=== PATIENT | male | born 1990 | race Caucasian/White ===

== ENCOUNTER 2016-09-13 20:49 | Emergency (ER) | payer BC ==
[~2016-09-13] VITALS: Ht 177.8 cm; Wt 74.6 kg
[2016-09-13 20:57] VITALS: BP 135/82; PULSE 72; RESP 20; TEMP 97.8
--- NOTE | 2016-09-13 21:22 | PD ---
HPI Chief Complaint: Skin Problem Time Seen by Provider: 21:14 Travel History International Travel<30 days: No Contact w/Intl Traveler<30days: No Traveled to known affect area: No History of Present Illness HPI 25-year-old male presents to the emergency room for evaluation of left-sided facial swelling for the past several hours. Patient states he had a pimple to his left forehead 4 days ago and he tried to pop it. States symptoms seemed to worsen afterward. He got a small amount of clear drainage but no purulent discharge. States today after going to work, the swelling developed. 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 Patient reports minimal pain that was mostly concerned about the swelling. He took ibuprofen prior to coming to the emergency room without significant relief. Denies eye pain, change in visual acuity, or eye drainage. Denies fever, chills, nausea, and vomiting. No chronic medical conditions or daily medications. PFSH Past Medical History Blood Disorders: No Cancer: No Cirrhosis: Yes Diminished Hearing: No Psychiatric: Yes ([facility]. NOW IN RESIDENT [place] FOR DRUGS) Seizures: No Thyroid Disease: No Ulcer: No Past Surgical History Genitourinary Surgery: Yes (RENAL BX + NIL DISEASE) Other Surgery: Yes (RIGHT ELBOW FRACTURE) Social History Alcohol Use: No Tobacco Use: Yes (1 PPD) Substance Use: No Allergies-Medications (Allergen,Severity, Reaction): Coded Allergies: No Known Allergies (Verified , 11/15/13) Reported Meds & Prescriptions Reported Meds & Active Scripts Active Clindamycin (Clindamycin HCl) 300 Mg Cap 300 Mg PO Q8HR 10 Days Review of Systems Except as stated in HPI: all other systems reviewed are Neg Physical Exam Narrative GENERAL: Well-nourished, well-developed male in no acute distress. Afebrile. Ambulatory. SKIN: Warm and dry. There is a 0.5 cm maculopapular lesion to the left forehead with surrounding edema extending approximately 3-4 centers in each direction. The preseptal space of the upper eyelid is unaffected. No significant erythema. Extreme tenderness to palpation, especially over the eyebrow. HEAD: Normocephalic. EYES: PERRL, EOMI, no discharge or injection. No scleral icterus. No proptosis. NECK: Supple, trachea midline. No JVD or lymphadenopathy. CARDIOVASCULAR: Regular rate and rhythm without murmurs, gallops, or rubs. RESPIRATORY: Breath sounds equal bilaterally. No accessory muscle use. Data Data Last Documented VS Vital Signs Date Time Temp Pulse Resp B/P Pulse Ox O2 Delivery O2 Flow Rate FiO2 09/13/16 20:57 97.8 72 20 135/82 [facility] Medical Decision Making Medical Screen Exam Complete: Yes Emergency Medical Condition: Yes Medical Record Reviewed: Yes Differential Diagnosis Preseptal cellulitis versus orbital cellulitis versus acne Narrative Course 25-year-old male presents to the emergency room for evaluation of left forehead pimple developed worsening edema and pain today. Physical exam reveals a 0.5 cm maculopapular lesion the left forehead with 4 cm of surrounding edema in all directions. Edema extends into the upper lid of the left eye. Visual acuity is unaffected. Eyes without injection or drainage. There is no proptosis. No pain with eye movement. No history of fever. Vital signs stable. History and physical exam are consistent with preseptal cellulitis. I had my attending physician, Dr. Tucker, assess the patient and he agrees with the proposed plan. Patient will be discharged with prescription for clindamycin and told to follow up with a primary care physician or return to the emergency room for worsening symptoms. He understands and agrees to this plan. Diagnosis Primary Impression: Periorbital cellulitis of left eye Referrals: Primary Care Physician Patient Instructions: General Instructions, Periorbital Cellulitis in Adults ( ED) Departure Forms: Tests/Procedures, Work Release Enter return to work date: Sep 16, 2016 Additional Instructions: Rest and drink plenty of fluids. Take clindamycin as directed, until gone. Take ibuprofen with food as directed, as needed for pain. Follow-up with a primary care physician. Return to the emergency room for worsening symptoms. Med/Other Pt SpecificInfo: Prescription(s) given Scripts Clindamycin 300 Mg Bpr473 Mg PO Q8HR 10 Days Ref 0 Prov:Shailesh Lopez MD 09/13/16 Disposition: 01 DISCHARGE HOME Condition: Stable Nathalie Meyers Sep 13, 2016 21:22
[2016-09-13] MEDS ORDERED: CLIN1CAP6 PO (21:23)
== END 2016-09-13 22:05 | disposition home or self-care (01) ==
LOC: PHEFT 20:49
DX: L03.213 Periorbital cellulitis (principal); F17.210 Nicotine dependence, cigarettes, uncomplicated
CPT/HCPCS: 99283

== ENCOUNTER 2016-09-14 03:41 | Emergency (ER) | payer BC ==
[~2016-09-14] VITALS: Ht 177.8 cm; Wt 74.7 kg
[~2016-09-14 03:41] MED LIST: CLIN1CAP6 PO
[2016-09-14 03:53] VITALS: BP 121/82; PULSE 74; RESP 16; TEMP 97.7; O2SAT 98
[2016-09-14 04:21] VITALS: BP 121/82; PULSE 74; RESP 18; TEMP 97.7; O2SAT 98
--- NOTE | 2016-09-14 05:43 | PD ---
HPI Chief Complaint: Skin Problem Time Seen by Provider: 05:34 Travel History International Travel<30 days: No Contact w/Intl Traveler<30days: No Traveled to known affect area: No History of Present Illness HPI 25-year-old male presents to the emergency department for complaint of forehead swelling. Patient reports on he had a pimple-like lesion to his forehead he noted there for a couple of days and then tried to express the site and noted increased redness and swelling to the area. Patient was seen for the first time last evening for same complaint and was given prescription for clindamycin. Patient states he does not have finances to fill the prescription so when he awakened from sleep this morning he noticed that there was more swelling of the forehead and had been told to return to the emergency department if any worsening. She now receiving antibiotic in the emergency department has been on no antibiotic. Patient denies fever chills nausea vomiting. Patient is not diabetic. Patient denies any visual disturbance or pain with range of motion of the eye. Patient states he is here because of swelling. The patient rates the pain 8/10 in intensity. PFSH Past Medical History Narrative Medical Cirrhosis, renal biopsy, janey disease, HBS admissions, right elbow fracture, tobacco use; nursing notes reviewed Blood Disorders: No Cancer: No Cirrhosis: Yes Diminished Hearing: No Psychiatric: Yes ([facility]BS ADMISSIONS. NOW IN [place]IDENT [place] FOR DRUGS) Seizures: No Thyroid Disease: No Ulcer: No Tetanus Vaccination: > 5 Years Influenza Vaccination: Yes Past Surgical History Genitourinary Surgery: Yes (RENAL BX + NIL DISEASE) Other Surgery: Yes (RIGHT ELBOW FRACTURE) Social History Alcohol Use: No Tobacco Use: Yes (1 PPD) Substance Use: No Allergies-Medications (Allergen,Severity, Reaction): Coded Allergies: No Known Allergies (Verified , 09/14/16) Reported Meds & Prescriptions Reported Meds & Active Scripts Active Clindamycin (Clindamycin HCl) 300 Mg Cap 300 Mg PO Q8HR 10 Days Review of Systems Except as stated in HPI: all other systems reviewed are Neg General / Constitutional: No: Fever Eyes: No: Visual changes HENT: Positive: Headaches, No: Congestion, Neck Pain Cardiovascular: No: Chest Pain or Discomfort Respiratory: No: Shortness of Breath Gastrointestinal: No: Nausea, Vomiting Genitourinary: No: Flank Pain Musculoskeletal: No: Myalgias, Arthralgias Skin: Positive Rash, Positive Lumps Neurologic: No: Weakness, Dizziness, Syncope, Focal Abnormalities, Coordination Problem Psychiatric: Positive: Anxiety Hematologic/Lymphatic: No: Easy Bruising Physical Exam Narrative GENERAL: Well-developed well-nourished male in no acute distress no respiratory distress SKIN: Warm and dry. Soft tissue swelling to the left forehead with central 0.5 cm macular papular lesion with surrounding soft tissue induration and swelling extending to the eyebrow and affecting the upper lid. No drainage or injection of the left eye. Extraocular muscles are intact. No fluctuance. No purulent drainage. Scalp is spared. HEAD: Normocephalic. EYES: No scleral icterus. No injection or drainage. Bilateral pupils equal round reactive to light extraocular muscles intact. NECK: Supple, trachea midline. No JVD or lymphadenopathy. CARDIOVASCULAR: Regular rate and rhythm without murmurs, gallops, or rubs. RESPIRATORY: Breath sounds equal bilaterally. No accessory muscle use. GASTROINTESTINAL: Abdomen soft, non-tender, nondistended. MUSCULOSKELETAL: No cyanosis, or edema. BACK: Nontender without obvious deformity. No CVA tenderness. Data Data Last Documented VS Vital Signs Date Time Temp Pulse Resp B/P Pulse Ox O2 Delivery O2 Flow Rate FiO2 09/14/16 07:43 97.7 65 16 116/68 96 Nasal Cannula 4 Orders Basic Metabolic Panel (Bmp) (09/14/16 05:34) Complete Blood Count With Diff (09/14/16 05:34) Blood Culture (09/14/16 05:34) Iv Access Insert/Monitor (09/14/16 05:34) Ketorolac Inj (Toradol Inj) (09/14/16 05:45) Clindamycin Inj (Cleocin Inj) (09/14/16 05:45) Lactic Acid (09/14/16 05:34) Ct Facial Bones W Iv Contrast (09/14/16 ) Iohexol 350 Inj (Omnipaque 350 Inj) (09/14/16 08:06) Labs Laboratory Tests Test 09/14/16 06:15 White Blood Count 13.2 TH/MM3 Red Blood Count 5.54 MIL/MM3 Hemoglobin 15.1 GM/DL Hematocrit 46.6 % Mean Corpuscular Volume 84.0 FL Mean Corpuscular Hemoglobin 27.3 PG Mean Corpuscular Hemoglobin 32.5 % Concent Red Cell Distribution Width 12.3 % Platelet Count 267 TH/MM3 Mean Platelet Volume 8.4 FL Neutrophils (%) (Auto) 64.2 % Lymphocytes (%) (Auto) 23.8 % Monocytes (%) (Auto) 9.3 % Eosinophils (%) (Auto) 1.9 % Basophils (%) (Auto) 0.8 % Neutrophils # (Auto) 8.5 TH/MM3 Lymphocytes # (Auto) 3.1 TH/MM3 Monocytes # (Auto) 1.2 TH/MM3 Eosinophils # (Auto) 0.3 TH/MM3 Basophils # (Auto) 0.1 TH/MM3 CBC Comment DIFF FINAL Differential Comment Sodium Level 141 MEQ/L Potassium Level 3.7 MEQ/L Chloride Level 106 MEQ/L Carbon Dioxide Level 27.7 MEQ/L Anion Gap 7 MEQ/L Blood Urea Nitrogen 10 MG/DL Creatinine 0.91 MG/DL Estimat Glomerular Filtration 101 ML/MIN Rate Random Glucose 84 MG/DL Lactic Acid Level 0.7 mmol/L Calcium Level 8.8 MG/DL MDM Medical Decision Making Medical Screen Exam Complete: Yes Emergency Medical Condition: Yes Medical Record Reviewed: Yes Interpretation(s) Laboratory Tests Test 09/14/16 06:15 White Blood Count 13.2 TH/MM3 Red Blood Count 5.54 MIL/MM3 Hemoglobin 15.1 GM/DL Hematocrit 46.6 % Mean Corpuscular Volume 84.0 FL Mean Corpuscular Hemoglobin 27.3 PG Mean Corpuscular Hemoglobin 32.5 % Concent Red Cell Distribution Width 12.3 % Platelet Count 267 TH/MM3 Mean Platelet Volume 8.4 FL Neutrophils (%) (Auto) 64.2 % Lymphocytes (%) (Auto) 23.8 % Monocytes (%) (Auto) 9.3 % Eosinophils (%) (Auto) 1.9 % Basophils (%) (Auto) 0.8 % Neutrophils # (Auto) 8.5 TH/MM3 Lymphocytes # (Auto) 3.1 TH/MM3 Monocytes # (Auto) 1.2 TH/MM3 Eosinophils # (Auto) 0.3 TH/MM3 Basophils # (Auto) 0.1 TH/MM3 CBC Comment DIFF FINAL Differential Comment Sodium Level 141 MEQ/L Potassium Level 3.7 MEQ/L Chloride Level 106 MEQ/L Carbon Dioxide Level 27.7 MEQ/L Anion Gap 7 MEQ/L Blood Urea Nitrogen 10 MG/DL Creatinine 0.91 MG/DL Estimat Glomerular Filtration 101 ML/MIN Rate Random Glucose 84 MG/DL Lactic Acid Level 0.7 mmol/L Calcium Level 8.8 MG/DL Differential Diagnosis Facial cellulitis, orbital cellulitis, periorbital cellulitis, abscess Narrative Course IV access obtained specimens collected and sent for resulting patient administered clindamycin 900 mg IV piggyback and Toradol 30 mg IV 25-year-old male with simple that he attempted to express after 5 days of symptoms presented earlier to the emergency department has not taken any antibiotic and returns because symptoms have not improved. Patient will be given first dose of antibiotic labs collected and sent for resulting. CT facial bones for abscess to soft tissue forehead/periorbital area pending; disposition and care signed over to Dr Lei. Diagnosis Primary Impression: Periorbital cellulitis of left eye Pari Pierre MD Sep 14, 2016 05:43
[2016-09-14] MEDS ORDERED: CLINDAMYCIN INJ 900 MG in SODIUM CHLORIDE 0.9% INJ 100 ML IV ONE (05:45)
[2016-09-14] MEDS ORDERED: KETOROLAC TROMETHAMINE 30 MG/ML (IVP) VIAL IVP ONE (05:45)
[2016-09-14 06:36] LABS: AUTOMATED NEUTROPHIL # 8.5 TH/MM3 (1.8-7.7); BASOPHIL # 0.1 TH/MM3 (0-0.2); BASOPHIL % 0.8 % (0.0-2.0); EOSINOPHIL # 0.3 TH/MM3 (0-0.4); EOSINOPHIL % 1.9 % (0.0-4.0); HEMATOCRIT 46.6 % (39.0-51.0); HEMO FLAGS DIFF FINAL; LYMPH % 23.8 % (9.0-44.0); LYMPHOCYTE # 3.1 TH/MM3 (1.0-4.8); MEAN CORPUSCULAR HEMOGLOBIN 27.3 PG (27.0-34.0); MEAN CORPUSCULAR HGB CONC 32.5 % (32.0-36.0); MONO % 9.3 % (0.0-8.0); NEUT % 64.2 % (16.0-70.0); PLATELET COUNT 267 TH/MM3 (150-450); RED BLOOD COUNT 5.54 MIL/MM3 (4.50-5.90); RED CELL DISTRIBUTION WIDTH 12.3 % (11.6-17.2); WHITE BLOOD COUNT 13.2 TH/MM3 (4.0-11.0)
[2016-09-14 06:40] VITALS: BP 105/65; PULSE 76; RESP 18; O2SAT 98
[2016-09-14 06:48] LABS: POTASSIUM 3.7 MEQ/L (3.5-5.1)
[2016-09-14 06:52] LABS: BICARBONATE 27.7 MEQ/L (21.0-32.0)
[2016-09-14 07:43] VITALS: BP 116/68; PULSE 65; RESP 16; TEMP 97.7; O2SAT 96
[2016-09-14] MEDS ORDERED: IOHEXOL 350 MG/ML 10 ML VIAL (for RAD DIAG) IV ONE (08:06)
--- NOTE | 2016-09-14 08:20 | RADHPO ---
EXAM DATE/TIME: 09/14/2016 07:55 [facility] COMPARISON: No previous studies available for comparison. INDICATIONS : Worsening left christine-orbital and frontal swelling. Evaluate for abscess. IV CONTRAST: 75 cc Omnipaque 350 (iohexol) IV RADIATION DOSE: 30.33 CTDIvol (mGy) MEDICAL HISTORY : None SURGICAL HISTORY : None. ENCOUNTER: Initial ACUITY: 4 - 6 days PAIN SCALE: 4/10 LOCATION: Left facial TECHNIQUE: Volumetric scanning of the facial bones was performed. Using automated exposure control and adjustme nt of the mA and/or kV according to patient size, radiation dose was kept as low as reasonably achiev able to obtain optimal diagnostic quality images. FINDINGS: ORBITS: The orbital and infraorbital osseous structures are intact. The retroconal structures have a normal configuration. No radiopaque foreign bodies are seen. NASAL BONE: The nasal bone and maxillary spine are intact ZYGOMATIC ARCHES: Symmetric without evidence of fracture. SINUSES: The maxillary, ethmoid and frontal sinuses are intact. No air-fluid levels seen. NASAL CAVITY: The nasal septum is intact and midline. The lacrimal ducts are intact. SOFT TISSUES: No radiopaque foreign bodies seen. Facial and periorbital soft tissue swelling greater on involving the left periorbital region. No postseptal involvement. INTRACRANIAL: No intracranial air seen. CRIBIFORM PLATE: Grossly intact. CONCLUSION: 1. Soft tissue swelling including left periorbital region. No postseptal involvement. 2. No abscess. Nasir Walden MD on September 14, 2016 at 8:15 Board Certified Radiologist. This report was verified electronically.
--- NOTE | 2016-09-14 08:31 | PD ---
Physical Exam Date Seen by Provider: Sep 14, 2016 Time Seen by Provider: 07:45 Narrative Patient signed out to me by Dr. Pierre, please see previous notes for further details. Here with left forehead cellulitis seen yesterday, had not done prescription filled, and returned with worsening in cellulitis. Lab work indicates elevation in white blood cell count. Cultures have been drawn and IV antibiotics clindamycin initiated in the ER. CT did not show any signs of acute abscesses or other underlying processes. There does not appear to be any post septal involvement. Extra ocular movements are intact. Nonpainful. At this point, my plan would be to release the patient with repeat instructions to get his antibiotics filled immediately and to take them immediately. Follow-up with primary care doctor. Return for any worsening in swelling, fevers, pain, and as needed. The plan has been discussed with him and he states understanding. Laboratory Tests Test 09/14/16 06:15 White Blood Count 13.2 TH/MM3 (4.0-11.0) Monocytes (%) (Auto) 9.3 % (0.0-8.0) Neutrophils # (Auto) 8.5 TH/MM3 (1.8-7.7) Monocytes # (Auto) 1.2 TH/MM3 (0-0.9) Last [address] 09/14/16 0000 Signed Impressions: Service Date/Time: Wednesday, September 14, 2016 07:55 - CONCLUSION: 1. Soft tissue swelling including left periorbital region. No postseptal involvement. 2. No abscess. Nasir Walden MD Data Data Last Documented VS Vital Signs Date Time Temp Pulse Resp B/P Pulse Ox O2 Delivery O2 Flow Rate FiO2 09/14/16 07:43 97.7 65 16 116/68 96 Nasal Cannula 4 Orders Basic Metabolic Panel (Bmp) (09/14/16 05:34) Complete Blood Count With Diff (09/14/16 05:34) Blood Culture (09/14/16 05:34) Iv Access Insert/Monitor (09/14/16 05:34) Ketorolac Inj (Toradol Inj) (09/14/16 05:45) Clindamycin Inj (Cleocin Inj) (09/14/16 05:45) Lactic Acid (09/14/16 05:34) Ct Facial Bones W Iv Contrast (09/14/16 ) Iohexol 350 Inj (Omnipaque 350 Inj) (09/14/16 08:06) Labs Laboratory Tests Test 09/14/16 06:15 White Blood Count 13.2 TH/MM3 Red Blood Count 5.54 MIL/MM3 Hemoglobin 15.1 GM/DL Hematocrit 46.6 % Mean Corpuscular Volume 84.0 FL Mean Corpuscular Hemoglobin 27.3 PG Mean Corpuscular Hemoglobin 32.5 % Concent Red Cell Distribution Width 12.3 % Platelet Count 267 TH/MM3 Mean Platelet Volume 8.4 FL Neutrophils (%) (Auto) 64.2 % Lymphocytes (%) (Auto) 23.8 % Monocytes (%) (Auto) 9.3 % Eosinophils (%) (Auto) 1.9 % Basophils (%) (Auto) 0.8 % Neutrophils # (Auto) 8.5 TH/MM3 Lymphocytes # (Auto) 3.1 TH/MM3 Monocytes # (Auto) 1.2 TH/MM3 Eosinophils # (Auto) 0.3 TH/MM3 Basophils # (Auto) 0.1 TH/MM3 CBC Comment DIFF FINAL Differential Comment Sodium Level 141 MEQ/L Potassium Level 3.7 MEQ/L Chloride Level 106 MEQ/L Carbon Dioxide Level 27.7 MEQ/L Anion Gap 7 MEQ/L Blood Urea Nitrogen 10 MG/DL Creatinine 0.91 MG/DL Estimat Glomerular Filtration 101 ML/MIN Rate Random Glucose 84 MG/DL Lactic Acid Level 0.7 mmol/L Calcium Level 8.8 MG/DL [facility] Medical Record Reviewed: Yes Supervised Visit with CARLOS: No Disposition: 01 DISCHARGE HOME Condition: Stable Renate Lei MD Sep 14, 2016 08:31
== END 2016-09-14 08:46 | disposition home or self-care (01) ==
LOC: PHED 03:41
DX: L03.213 Periorbital cellulitis (principal)
CPT/HCPCS: 70487; 80048; 83605; 85025; 87040; 96365; 96375; 99284; J1885; Q9967

== ENCOUNTER 2017-12-05 16:39 | Emergency (ER) | payer BC, OTHER ==
[~2017-12-05] VITALS: Ht 180.3 cm; Wt 72.0 kg
[~2017-12-05 16:39] MED LIST changes: -CLIN1CAP6 PO; +CLIN300C5 PO
[2017-12-05 16:46] VITALS: BP 129/77; PULSE 80; RESP 16; TEMP 98.8; O2SAT 98
--- NOTE | 2017-12-05 17:34 | PD ---
HPI Chief Complaint: Skin Problem Time Seen by Provider: 17:25 Travel History International Travel<30 days: No Contact w/Intl Traveler<30days: No Traveled to known affect area: No History of Present Illness HPI 27-year-old male presents emergency department for evaluation of left arm pain that started today. States that he was putting his arm out the window when he noticed a sharp pain on the inside of his elbow. Says he is concerned about a blood clot as he says he feels a small knot in his arm. Says the area is mild to moderately painful when palpated but denies any pain with rest or movement. He does not believe that the arm is more swollen than normal. He denies any recent travel, blood disorder, cancer, recent surgery, or immobilization. He denies any history of clots. He denies any numbness or tingling of the arm. He denies any fevers or chills. Says he has a history of nephrotic syndrome but denies any other medical issues or medical history. PFSH Past Medical History Medical History: Denies Significant Hx Blood Disorders: No Cancer: No Cirrhosis: Yes Diminished Hearing: No Psychiatric: Yes (HBS ADMISSIONS. NOW IN [place] FOR DRUGS) Immunizations Current: Yes Seizures: No Thyroid Disease: No Ulcer: No Tetanus Vaccination: > 5 Years Influenza Vaccination: Yes Past Surgical History Genitourinary Surgery: Yes (RENAL BX + NIL DISEASE) Other Surgery: Yes (RIGHT ELBOW FRACTURE) Social History Alcohol Use: Yes (SOCIAL) Tobacco Use: Yes (1 PPD) Substance Use: No Allergies-Medications (Allergen,Severity, Reaction): Coded Allergies: No Known Allergies (Verified Adverse Reaction, Unknown, 12/05/17) Reported Meds & Prescriptions Reported Meds & Active Scripts Active No Active Prescriptions or Reported Medications Review of Systems Except as stated in HPI: all other systems reviewed are Neg Physical Exam Narrative GENERAL: Well-nourished, well-developed patient. SKIN: Focused skin assessment warm/dry. HEAD: Normocephalic. EYES: No scleral icterus. No injection or drainage. NECK: Supple, trachea midline. No JVD or lymphadenopathy. CARDIOVASCULAR: Regular rate and rhythm without murmurs, gallops, or rubs. RESPIRATORY: Breath sounds equal bilaterally. No accessory muscle use. GASTROINTESTINAL: Abdomen soft, non-tender, nondistended. MUSCULOSKELETAL: No cyanosis, or edema. Homans sign negative bilaterally Right arm-just proximal to the medial aspect of elbow, small, mobile cystic type structure, mildly fluctuant. Neurovascularly intact right upper extremity. No edema, no erythema. No ecchymosis. Cystic structure is tender to palpation. BACK: Nontender without obvious deformity. No CVA tenderness. Data Data Last Documented VS Vital Signs Date Time Temp Pulse Resp B/P (MAP) Pulse Ox O2 Delivery O2 Flow Rate FiO2 12/05/17 16:46 98.8 80 16 129/77 (94) 98 Orders Orders Ed Discharge Order (12/05/17 17:35) [facility] Medical Decision Making Medical Screen Exam Complete: Yes Emergency Medical Condition: Yes Differential Diagnosis Bursitis, cellulitis, cyst Narrative Course 27-year-old male presents emergency department for evaluation of a lump to the left inner arm that he noticed today. Says he was putting his elbow on the car and noticed a sharp pain in the area decided to come in to emergency department evaluation. Patient was concerned about a blood clot but denies any inciting events or risk factors for blood clot. Says that he does frequently drive and put his arm out the window. Vital signs are stable. History and physical consistent with bursitis versus cyst of left elbow/arm. Says that the site is tender to palpation but denies pain at any other point. Again, patient has no risk factors for blood clot. He has no history of blood clots. The arm does not appear swollen or erythematous. There is a mobile, round cystic mass that reproduces his pain. Provided reassurance to the patient. I do not suspect that there is any serious etiology to his pain. I suspect that patient drives with his arm out the window frequently and is aggravated a cyst to his elbow that he never noticed before. Patient advised to avoid trauma or repeated pressure to the area. Advised he should follow-up with his primary care physician. Consider follow-up with credit balance specialist for further treatment and evaluation. States understanding will comply. Diagnosis Primary Impression: Other bursal cyst, left elbow Referrals: Orthopedist Primary Care Physician Additional Instructions: Use ice or heat for symptom relief. Elevate the joint above the heart to reduce swelling. You may use compression with Bryson wrap or similar to reduce swelling. If symptoms persist or worsen, return to the emergency department. Follow up with your primary care physician within 2 days. Avoid applying pressure to the elbow joint. If you develop increased swelling, pain, redness to the area return to the emergency department. Scripts No Active Prescriptions or Reported Meds Disposition: 01 DISCHARGE HOME Condition: Stable Noemí Lee Dec 05, 2017 17:34
== END 2017-12-05 17:40 | disposition home or self-care (01) ==
LOC: PHEFT 16:39
DX: M71.322 Other bursal cyst, left elbow (principal); N04.9 Nephrotic syndrome with unspecified morphologic changes; K74.60 Unspecified cirrhosis of liver; F17.200 Nicotine dependence, unspecified, uncomplicated
CPT/HCPCS: 99281

== ENCOUNTER 2017-12-31 13:19 | Emergency (ER) | payer SELFPAY ==
[~2017-12-31] VITALS: Ht 180.3 cm; Wt 71.3 kg
[2017-12-31 13:24] VITALS: BP 130/67; PULSE 81; RESP 16; TEMP 97.8; O2SAT 97
[2017-12-31] MEDS ORDERED: CLIN300C5 PO (14:16)
--- NOTE | 2017-12-31 14:16 | PD ---
HPI Chief Complaint: Skin Problem Time Seen by Provider: 14:05 Travel History International Travel<30 days: No Contact w/Intl Traveler<30days: No Traveled to known affect area: No History of Present Illness HPI This is a 27-year-old male here with possible infected insect bite to his right cheek 2 days. He reports he noticed an area of redness and tenderness several days ago. No fever chills. Symptom severity is mild to moderate. No aggravating or alleviating factors. PFSH Past Medical History Medical History: Denies Significant Hx Hx Anticoagulant Therapy: No Blood Disorders: No Cancer: No Cardiovascular Problems: No Cirrhosis: Yes Diabetes: No Diminished Hearing: No Psychiatric: Yes (HBS ADMISSIONS. NOW IN RESIDENT [place] FOR DRUGS) Immunizations Current: Yes Seizures: No Thyroid Disease: No Ulcer: No Past Surgical History Genitourinary Surgery: Yes (RENAL BX + NIL DISEASE) Other Surgery: Yes (RIGHT ELBOW FRACTURE) Social History Alcohol Use: Yes (SOCIAL) Tobacco Use: Yes (1 PPD) Substance Use: No Allergies-Medications (Allergen,Severity, Reaction): Coded Allergies: No Known Allergies (Verified Adverse Reaction, Unknown, 12/31/17) Reported Meds & Prescriptions Reported Meds & Active Scripts Active Clindamycin (Clindamycin HCl) 300 Mg Cap 300 Mg PO Q6H 10 Days Review of Systems Except as stated in HPI: all other systems reviewed are Neg General / Constitutional: No: Fever Eyes: No: Visual changes HENT: No: Headaches Cardiovascular: No: Chest Pain or Discomfort Respiratory: No: Shortness of Breath Gastrointestinal: No: Abdominal Pain Genitourinary: No: Dysuria Physical Exam Narrative GENERAL: Alert and well-appearing 27-year-old male SKIN: Warm and dry. 2 cm area of erythema and slight induration to the right cheek. No fluctuance. There is a central puncture draining clear fluid. HEAD: Normocephalic. EYES: No swelling of the upper or lower lids. no injection or drainage. EOMs intact. NECK: Supple, trachea midline. No lymphadenopathy. CARDIOVASCULAR: Regular rate and rhythm without murmurs, gallops, or rubs. RESPIRATORY: Breath sounds equal bilaterally. No accessory muscle use. GASTROINTESTINAL: nondistended. MUSCULOSKELETAL: No cyanosis, or edema. Data Data Last Documented VS Vital Signs Date Time Temp Pulse Resp B/P (MAP) Pulse Ox O2 Delivery O2 Flow Rate FiO2 5/12/18 13:24 97.8 81 16 130/67 (88) 97 MDM Medical Decision Making Medical Screen Exam Complete: Yes Emergency Medical Condition: Yes Differential Diagnosis Facial abscess, facial cellulitis, inflamed insect bite Narrative Course This is a 27-year-old male here with early facial abscess or cellulitis. He is nontoxic appearing. He will be discharged home with clindamycin and instructed to apply warm compresses. Return precautions were discussed. Diagnosis Primary Impression: Facial cellulitis Referrals: Primary Care Physician Additional Instructions: Antibiotics as directed. Follow-up with her primary doctor. Return if he develop new or worsening symptoms Scripts Clindamycin (Clindamycin) 300 Mg Cap 300 MG PO Q6H for Infection for 10 Days, #40 CAP 0 Refills Prov: Chelsi Martinez 12/31/17 Disposition: 01 DISCHARGE HOME Condition: Stable Chelsi Martinez December 31, 2017 14:16
== END 2017-12-31 14:29 | disposition home or self-care (01) ==
LOC: PHEFT 13:19
DX: L03.211 Cellulitis of face (principal); K74.60 Unspecified cirrhosis of liver; F17.200 Nicotine dependence, unspecified, uncomplicated
CPT/HCPCS: 99283

== ENCOUNTER 2018-01-17 13:47 | Emergency (ER) | payer SELFPAY ==
[~2018-01-17] VITALS: Ht 177.8 cm; Wt 73.2 kg
[2018-01-17 14:01] VITALS: BP 136/73; PULSE 77; RESP 18; TEMP 98; O2SAT 98
--- NOTE | 2018-01-17 15:57 | PD ---
HPI Chief Complaint: Cold / Flu Symptoms Time Seen by Provider: 15:45 Travel History International Travel<30 days: No Contact w/Intl Traveler<30days: No Traveled to known affect area: No History of Present Illness HPI 27-year-old male presents emergency department complaining of sore throat that started yesterday. Says that he woke up and his pain was worse today so he decided to come in. He denies fevers, chills, cough, congestion, nasal drip. He denies sick contacts. He denies neck pain. No shortness of breath or chest pain. PFSH Past Medical History Hx Anticoagulant Therapy: No Blood Disorders: No Cancer: No Cardiovascular Problems: No Cirrhosis: Yes Diabetes: No Diminished Hearing: No Psychiatric: Yes (HBS ADMISSIONS. NOW IN [place] FOR DRUGS) Immunizations Current: Yes Seizures: No Thyroid Disease: No Ulcer: No Influenza Vaccination: No Past Surgical History Genitourinary Surgery: Yes (RENAL BX + NIL DISEASE) Other Surgery: Yes (RIGHT ELBOW FRACTURE) Social History Alcohol Use: Yes (SOCIAL) Tobacco Use: Yes (1 PPD) Substance Use: No Allergies-Medications (Allergen,Severity, Reaction): Coded Allergies: No Known Allergies (Verified Adverse Reaction, Unknown, 01/17/18) Reported Meds & Prescriptions Reported Meds & Active Scripts Active No Active Prescriptions or Reported Medications Review of Systems Except as stated in HPI: all other systems reviewed are Neg Physical Exam Narrative GENERAL: Well-developed well-nourished no apparent distress SKIN: Focused skin assessment warm/dry. HEAD: Atraumatic. Normocephalic. EYES: Pupils equal and round. No scleral icterus. No injection or drainage. ENT: No nasal bleeding or discharge. Mucous membranes pink and moist. Tympanic membranes pearly gomez. Pharyngeal injection and erythema without exudates NECK: Trachea midline. No JVD. No anterior cervical lymphadenopathy CARDIOVASCULAR: Regular rate and rhythm. No murmur appreciated. RESPIRATORY: No accessory muscle use. Clear to auscultation. Breath sounds equal bilaterally. MUSCULOSKELETAL: No obvious deformities. No clubbing. No cyanosis. No edema. NEUROLOGICAL: Awake and alert. No obvious cranial nerve deficits. Motor grossly within normal limits. Normal speech. PSYCHIATRIC: Appropriate mood and affect; insight and judgment normal. Data Data Last Documented VS Vital Signs Date Time Temp Pulse Resp B/P (MAP) Pulse Ox O2 Delivery O2 Flow Rate FiO2 5/29/18 14:01 98.0 77 18 136/73 (94) 98 Orders Orders Group A Rapid Strep Screen (01/17/18 15:49) Strep Culture (Group A) (01/17/18 15:50) MDM Medical Decision Making Medical Screen Exam Complete: Yes Emergency Medical Condition: Yes Differential Diagnosis Allergic pharyngitis, viral pharyngitis, upper respiratory infection, common cold, postnasal drip Narrative Course 27-year-old male presents emergency department complaining of sore throat that started yesterday. Says that he woke up and his pain was worse today so he decided to come in. He denies fevers, chills, cough, congestion, nasal drip. He denies sick contacts. He denies neck pain. No shortness of breath or chest pain. Vital signs are stable. Physical exam findings consistent with pharyngitis, no tonsillar exudates. Mild pharyngeal injections with mild hypertrophy. Patient requested a strep test and this is negative. Patient likely has viral versus allergic pharyngitis. Patient given instructions regarding care. Diagnosis Primary Impression: Pharyngitis Qualified Codes: J02.9 - Acute pharyngitis, unspecified Referrals: Primary Care Physician Departure Forms: Tests/Procedures, Work Release Enter return to work date: January 18, 2018 Additional Instructions: Use salt water gargles for symptom relief. Continue to drink plenty of fluids with good oral intake. You may use Tylenol or Motrin per package instructions for fever or pain. Follow-up with primary care physician within 2-3 days. If your symptoms persist or worsen return to the emergency department. Consider using vori-run-fyhdlai medication such as Zyrtec, Claritin or Gail for your symptoms. Your strep test is negative today and you likely have a viral or allergy irritation to her throat. Scripts No Active Prescriptions or Reported Meds Disposition: 01 DISCHARGE HOME Condition: Stable Noemí Lee January 17, 2018 15:57
[2018-01-17] MEDS ORDERED: PRED10 PO (16:16)
== END 2018-01-17 16:23 | disposition home or self-care (01) ==
LOC: PHED 13:47 → PHEFT 16:23
DX: J02.9 Acute pharyngitis, unspecified (principal); K74.60 Unspecified cirrhosis of liver; F17.200 Nicotine dependence, unspecified, uncomplicated
CPT/HCPCS: 87081; 87880; 99283

== ENCOUNTER 2018-02-02 16:34 | Emergency (ER) | payer SELFPAY ==
[~2018-02-02] VITALS: Ht 180.3 cm; Wt 75.0 kg
[~2018-02-02 16:34] MED LIST changes: -CLIN300C5 PO; +PRED10 PO
[2018-02-02 16:37] VITALS: BP 150/79; PULSE 72; RESP 16; TEMP 98.6; O2SAT 97
--- NOTE | 2018-02-02 17:25 | PD ---
HPI Chief Complaint: Oral / Dental Pain or Problem Time Seen by Provider: 17:12 Travel History International Travel<30 days: No Contact w/Intl Traveler<30days: No Traveled to known affect area: No History of Present Illness HPI 27-year-old male presents emergency department for evaluation of an abscess to the left upper tooth. Says this started several days ago and has a history of trauma to the tooth when he was around age 12. Says he has a history of an abscess but has not had problems in many years. Says that he has had an abnormal taste in his mouth as a result of this. He says that he believes this has been exacerbated because he has been taking prednisone for sciatica. He believes that the prednisone has decreased his immune system, increasing his possibility for infection. He denies fevers or chills. Says his pain is controlled with ibuprofen and Tylenol. Says he also has been using salt water rinses for his tooth. PFSH Past Medical History Hx Anticoagulant Therapy: No Blood Disorders: No Cancer: No Cardiovascular Problems: No Cirrhosis: Yes Diabetes: No Diminished Hearing: No Psychiatric: Yes ([facility] ADMISSIONS. NOW IN [place] FOR DRUGS) Immunizations Current: Yes Seizures: No Thyroid Disease: No Ulcer: No Past Surgical History Genitourinary Surgery: Yes (RENAL BX + NIL DISEASE) Other Surgery: Yes (RIGHT ELBOW FRACTURE) Social History Alcohol Use: Yes (SOCIAL) Tobacco Use: Yes (1 PPD) Substance Use: No Allergies-Medications (Allergen,Severity, Reaction): Coded Allergies: No Known Allergies (Verified Adverse Reaction, Unknown, 02/02/18) Reported Meds & Prescriptions Reported Meds & Active Scripts Active Magic Mouthwash Pediatric/Adult Liq (Lidocaine/Diphenhydr/Alum/Mg/Simeth) 60 Ml Susp 5 Ml SWISH-SPIT ACHS Each 5mL contains: Diphenydramine 4.5mg, Viscous Lidocaine 2% 10mg, Maalox Advanced Regular Strength 2.7ml Penicillin V Potassium 500 Mg Tab 500 Mg PO Q8H 7 Days Review of Systems Except as stated in HPI: all other systems reviewed are Neg Physical Exam Narrative GENERAL: Well-nourished, well-developed patient, in NAD SKIN: Focused skin assessment warm/dry. No rashes or lesions. HEAD: Normocephalic. Atraumatic. EYES: No scleral icterus. No injection or drainage. PERRLA, EOMI THROAT: No pharyngeal injection, exudates, or tonsillar hypertrophy. Airway is patent. Poor dentition. Left upper cuspid region with 2 white areas on the gingiva, mild fluctuance. No focal area of induration NECK: Supple, trachea midline. No JVD or lymphadenopathy. No meningismus. CARDIOVASCULAR: Regular rate and rhythm without murmurs, gallops, or rubs. RESPIRATORY: Breath sounds equal bilaterally. No accessory muscle use. No wheezes, rales, or rhonchi MUSCULOSKELETAL: No cyanosis, or edema. BACK: Nontender without obvious deformity. No CVA tenderness. Data Data Last Documented VS Vital Signs Date Time Temp Pulse Resp B/P (MAP) Pulse Ox O2 Delivery O2 Flow Rate FiO2 02/02/18 16:37 98.6 72 16 150/79 (102) 97 Orders Orders Ed Discharge Order (02/02/18 17:27) MDM Medical Decision Making Medical Screen Exam Complete: Yes Emergency Medical Condition: Yes Differential Diagnosis Tooth abscess, dental infection, dental infection, tooth fracture Narrative Course 27-year-old male presents emergency department for evaluation of an abscess to the left upper tooth. Says this started several days ago and has a history of trauma to the tooth when he was around age 12. Says he has a history of an abscess but has not had problems in many years. Says that he has had an abnormal taste in his mouth as a result of this. He says that he believes this has been exacerbated because he has been taking prednisone for sciatica. He believes that the prednisone has decreased his immune system, increasing his possibility for infection. He denies fevers or chills. Says his pain is controlled with ibuprofen and Tylenol. Says he also has been using salt water rinses for his tooth. Vital signs stable. Physical exam findings demonstrate a fractured tooth, appearing old. no erythema surrounding gumline. Mild fluctuance just cephalic to the area with 2 white lesions on the gum. Patient says that he has not had any issues with his fractured tooth in many years. Because patient has had an abnormal tastes, I believe that the abscess is spontaneously draining and does not require any other intervention today other than antibiotics. In addition, patient will receive Magic mouthwash. He is strongly advised to follow-up with a dentist. Also follow-up with the primary care physician for further evaluation and treatment. Diagnosis Primary Impression: Dental infection Referrals: Dentist Additional Instructions: Take all medications as prescribed. Recommend he follow-up with the dentist. Follow-up with a primary care physician for further evaluation and treatment. If her symptoms persist or worsen return to the emergency department. Scripts Rakcasuvzqzqfaa-Ufxtegeoe-Lif-Alum-Simeth Liq (Magic Mouthwash Pediatric/Adult Liq) 60 Ml Susp 5 ML SWISH-SPIT ACHS for Pain Management, #60 ML 0 Refills Each 5mL contains: Diphenydramine 4.5mg, Viscous Lidocaine 2% 10mg, Maalox Advanced Regular Strength 2.7ml Prov: Lefty Goldberg MD 02/02/18 Penicillin V Potassium (Penicillin V Potassium) 500 Mg Tab 500 MG PO Q8H for Infection for 7 Days, #21 TAB 0 Refills Prov: Lefty Goldberg MD 02/02/18 Disposition: 01 DISCHARGE HOME Condition: Stable Noemí Lee Feb 02, 2018 17:25
[2018-02-02] MEDS ORDERED: MAGICPED SWISH-SPIT (17:26)
[2018-02-02] MEDS ORDERED: PENI500T PO (17:26)
== END 2018-02-02 17:40 | disposition home or self-care (01) ==
LOC: PHEFT 16:34
DX: K04.7 Periapical abscess without sinus (principal); K74.60 Unspecified cirrhosis of liver; F17.200 Nicotine dependence, unspecified, uncomplicated; Z79.899 Other long term (current) drug therapy
CPT/HCPCS: 99283

== ENCOUNTER 2018-02-12 13:23 | Emergency (ER) | payer SELFPAY ==
[~2018-02-12] VITALS: Ht 180.3 cm; Wt 71.3 kg
[~2018-02-12 13:23] MED LIST changes: +MAGICPED SWISH-SPIT; +PENI500T PO; -PRED10 PO
[2018-02-12 13:28] VITALS: BP 150/90; PULSE 94; RESP 16; TEMP 98.2; O2SAT 97
[2018-02-12] MEDS ORDERED: MAGICPED SWISH-SPIT (13:50)
--- NOTE | 2018-02-12 13:56 | PD ---
HPI Chief Complaint: Oral / Dental Pain or Problem Time Seen by Provider: 13:37 Travel History International Travel<30 days: No Contact w/Intl Traveler<30days: No Traveled to known affect area: No History of Present Illness HPI 19-year-old male presents to the ED for evaluation of left upper dental pain 2 weeks. Pain is rated 5/10, throbbing, exacerbated by cold temperatures. No alleviating factors reported. . Patient came to the ED and was treated with penicillin. He states that he had some improvement for a few days but the discomfort has returned. He reports 2 small blisters of the gum. He states that he injured the tooth when he was young and has never had any problems prior to this. He denies fever, chills, nausea, vomiting, bleeding gums. He has not been evaluated by a dentist. He states that he did not fill the prescription for the Magic mouthwash that was prescribed at his last visit. PFSH Past Medical History Hx Anticoagulant Therapy: No Blood Disorders: No Cancer: No Cardiovascular Problems: No Cirrhosis: Yes Diabetes: No Diminished Hearing: No Psychiatric: Yes (HBS ADMISSIONS. NOW IN [place] FOR DRUGS) Immunizations Current: Yes Seizures: No Thyroid Disease: No Ulcer: No Tetanus Vaccination: > 5 Years Influenza Vaccination: Yes Past Surgical History Genitourinary Surgery: Yes (RENAL BX + NIL DISEASE) Other Surgery: Yes (RIGHT ELBOW FRACTURE) Social History Alcohol Use: Yes (SOCIAL) Tobacco Use: Yes (1 PPD) Substance Use: No Allergies-Medications (Allergen,Severity, Reaction): Coded Allergies: No Known Allergies (Verified Adverse Reaction, Unknown, 02/12/18) Reported Meds & Prescriptions Reported Meds & Active Scripts Active Magic Mouthwash Pediatric/Adult Liq (Lidocaine/Diphenhydr/Alum/Mg/Simeth) 60 Ml Susp 5 Ml SWISH-SPIT ACHS Each 5mL contains: Diphenydramine 4.5mg, Viscous Lidocaine 2% 10mg, Maalox Advanced Regular Strength 2.7ml Review of Systems Except as stated in HPI: all other systems reviewed are Neg Physical Exam Narrative GENERAL: Well-nourished, well-developed white male no acute distress. SKIN: Warm and dry. HEAD: Normocephalic. Atraumatic. EYES: No scleral icterus. No injection or drainage. PERRLA. EOMI. ENT: Pearly gomez tympanic membranes bilaterally. Nasal mucosa is moist. Oropharynx without erythema, edema or exudate. DENTAL: No loose teeth. No malocclusion. Tooth #11 is eroded. There 21 mm whitened areas around the apex of the tooth. The common surrounding area is tender. No drainable abscess noted. NECK: Supple, trachea midline. No JVD or lymphadenopathy. CARDIOVASCULAR: Regular rate and rhythm without murmurs, gallops, or rubs. RESPIRATORY: Breath sounds clear and equal bilaterally. No accessory muscle use. GASTROINTESTINAL: Abdomen soft, non-tender, nondistended. + Bowel sounds MUSCULOSKELETAL: No cyanosis, or edema. Walks with a normal gait. BACK: Nontender without obvious deformity. No CVA tenderness. Data Data Last Documented VS Vital Signs Date Time Temp Pulse Resp B/P (MAP) Pulse Ox O2 Delivery O2 Flow Rate FiO2 02/12/18 13:28 98.2 94 16 150/90 (110) 97 Orders Orders Ed Discharge Order (02/12/18 13:56) [facility] Medical Decision Making Medical Screen Exam Complete: Yes Emergency Medical Condition: Yes Differential Diagnosis Dentalgia versus periodontitis versus gingivitis versus other Narrative Course 19-year-old male presents to the ED for evaluation of left upper dental pain 2 weeks. Pain is rated 5/10, throbbing, exacerbated by cold temperatures. No alleviating factors reported. Patient was treated with penicillin. Patient is afebrile on presentation. Physical exam consistent with gingivitis. No drainable abscess noted. There is decay of tooth #11 as well. Patient did not fill or utilize the Magic mouthwash prescribed at last visit. He does not have the paper prescription anymore. This was refilled. Patient's instructed to follow-up with a dentist for definitive treatment of his dental pain. He is stable and discharged home. Diagnosis Primary Impression: Dentalgia Additional Impression: Gingivitis Referrals: Dentist Additional Instructions: Rest, hydrate. Use OTC pain medication such as ibuprofen and Tylenol, as directed on the label , as needed for continued pain. Use Magic mouthwash 3-4 times a day, swish and spit as discussed. Follow-up with the dentist for further evaluation and treatment. Return to the ED for any urgent or emergent medical condition Med/Other Pt SpecificInfo: Prescription(s) given Scripts Cwapluogtnyspya-Bjolfejqp-Zcc-Alum-Simeth Liq (Magic Mouthwash Pediatric/Adult Liq) 60 Ml Susp 5 ML SWISH-SPIT ACHS for Pain Management, #60 ML 0 Refills Each 5mL contains: Diphenydramine 4.5mg, Viscous Lidocaine 2% 10mg, Maalox Advanced Regular Strength 2.7ml Prov: GreenValerieDelores DO 02/12/18 Disposition: 01 DISCHARGE HOME Condition: Stable Rajwinder Taylor Feb 12, 2018 13:56
== END 2018-02-12 14:02 | disposition home or self-care (01) ==
LOC: PHEFT 13:23
DX: K05.10 Chronic gingivitis, plaque induced (principal); K08.89 Other specified disorders of teeth and supporting structures; F17.210 Nicotine dependence, cigarettes, uncomplicated; K74.60 Unspecified cirrhosis of liver
CPT/HCPCS: 99283